=== PATIENT | female | born 2000 | race Two or more races ===

== ENCOUNTER 2020-03-29 16:24 | Inpatient (IN) | payer OTHER ==
[~2020-03-29] VITALS: Ht 157.5 cm; Wt 1.8 kg
[2020-03-29] MEDS ORDERED: PRENATAL TABLE1 EAC1 PO (23:08)
== END 2020-04-03 11:22 | disposition home or self-care (01) | DRG 787 ==
LOC: LDR 16:24 → OB/GYN 03-31 04:08
PROVIDERS: ADMIT Obstetrics & Gynecology; ATTEND Obstetrics & Gynecology
PROC: 3E033VJ Introduction of Other Hormone into Peripheral Vein, Percutaneous Approach (ICD-10-PCS; 2020-03-31)
PROC: 3E0P7VZ Introduction of Hormone into Female Reproductive, Via Natural or Artificial Opening (ICD-10-PCS; 2020-03-31)
PROC: 4A1HXFZ Monitoring of Products of Conception, Cardiac Rhythm, External Approach (ICD-10-PCS; 2020-03-31)
PROC: 10D00Z1 Extraction of Products of Conception, Low, Open Approach (ICD-10-PCS; principal; 2020-03-31 07:00)
DX: O61.9 Failed induction of labor, unspecified (principal); O41.03X0 Oligohydramnios, third trimester, not applicable or unspecified; O36.8330 Maternal care for abnormalities of the fetal heart rate or rhythm, third trimester, not applicable or unspecified; O63.0 Prolonged first stage (of labor); Z3A.38 38 weeks gestation of pregnancy; Z37.0 Single live birth; Z20.828 Contact with and (suspected) exposure to other viral communicable diseases